=== PATIENT | male | born 2000 | race Caucasian/White ===

== ENCOUNTER 2019-12-31 12:40 | Emergency (ER) | payer OTHER ==
[~2019-12-31] VITALS: Ht 172.7 cm; Wt 65.0 kg
[~2019-12-31 12:40] MED LIST: BENTYL10 MG/5 ML PO; CLEOCIN300 MG PO; FLUARIX QUADRIV1 INJ IM; FLUZONE SPLT1 M1 IM; GARDASIL IM; LAXATIVE; MAGNESIUM296 ML/BTL OR; MIRALAX3350 NF PO; MUPIROCIN2 % EX; NAPROXEN250 MG PO; PEPTO BISMOL30 ML PO; PROAIR HFA IN; ULTRAM50 M1 PO; VENTOLIN HFA IN; ZOFRAN ODT4 MG PO
[2019-12-31 17:32] VITALS: BP 117/60
== END 2019-12-31 17:32 | disposition home or self-care (01) | DRG 556 ==
LOC: ED 12:40
DX: M25.511 Pain in right shoulder (principal)

== ENCOUNTER 2020-01-11 19:16 | Emergency (ER) | payer OTHER ==
[~2020-01-11] VITALS: Ht 172.7 cm; Wt 70.0 kg
[2020-01-11] MEDS ORDERED: TRAMADOL HYDROC50 M1 PO (21:28)
[2020-01-11] MEDS ORDERED: CYCLOBENZAPRINE10 MG PO (21:28)
[2020-01-11 21:46] VITALS: BP 128/77
== END 2020-01-11 21:55 | disposition home or self-care (01) | DRG 552 ==
LOC: ED 19:16
DX: S16.1XXA Strain of muscle, fascia and tendon at neck level, initial encounter (principal); T14.8XXA Other injury of unspecified body region, initial encounter; V59.40XA Driver of pick-up truck or van injured in collision with unspecified motor vehicles in traffic accident, initial encounter